=== PATIENT | female | born 1950 | race Two or more races ===

== ENCOUNTER 2023-07-16 02:30 | Inpatient (IN) | payer OTHER, MEDICARE ==
[~2023-07-16] VITALS: Ht 175.3 cm; Wt 81.6 kg
[2023-07-16 03:37] LABS: HEMATOCRIT. 34.9 % (36.0-48.0); HEMOGLOBIN. 11.8 g/dL (12.0-16.0); MEAN CORPUSCULAR HEMOGLOBIN 30.5 pg (28.0-32.0); MEAN CORPUSCULAR HGB CONC 33.8 g/dL (31.0-37.0); MEAN CORPUSCULAR VOLUME 90.4 fL (81.0-99.0); MEAN PLATELET VOLUME 7.9 fl (7.4-10.4); PLATELET 248 x1000/uL (130-400); RED BLOOD CELL COUNT 3.86 mill/uL (4.2-5.4); RED CELL DISTRIBUTION WIDTH 14.1 % (11.6-14.6); WHITE BLOOD COUNT 5.5 x1000/uL (4.5-11.0)
[2023-07-16 03:57] LABS: ALANINE AMINOTRANSFERASE < 7 IU/L (10-49); ALBUMIN 4.2 g/dL (3.2-4.8); ASPARTATE AMINOTRANSFERASE 19 IU/L (<34); BILIRUBIN TOTAL 0.3 mg/dL (0.1-1.0); CARBON DIOXIDE 29 mEq/L (21-32); CHLORIDE 104 mEq/L (98-107); CREATININE 0.9 mg/dL (0.6-1.0); GLUCOSE 99 mg/dL (70-105); POTASSIUM 3.6 mEq/L (3.5-5.1); PROTEIN TOTAL 6.9 g/dL (6.0-8.3); SODIUM 138 mEq/L (136-145); TROPONIN I HIGH SENSITIVITY 4 ng/L (3.0-34); UREA NITROGEN BLOOD 12 mg/dL (9-23)
[2023-07-16 04:25] VITALS: PULSE 64; RESP 20; O2SAT 94
[2023-07-16] MEDS: IPRATROPIUM BROMIDE (0.02%) 0.5MG/2.5ML NEB HHN STA (04:25)
[2023-07-16] MEDS: ALBUTEROL (0.083%) 2.5MG/3ML NEB HHN SCH (04:25)
[2023-07-16 04:39] LABS: INR 0.9; PARTIAL THROMBOPLASTIN TIME 29.2 sec (23.4-31.0); PROTHROMBIN TIME 10.3 sec (9.6-11.0)
[2023-07-16] MEDS: METHYLPREDNISOLONE SOD SUCC 125MG/2ML (ACT-O-VIAL) IV STA (04:47)
[2023-07-16] MEDS: CEFTRIAXONE 1GM/50ML 50 ML IV ONE (04:47)
[2023-07-16] MEDS: SODIUM CHLORIDE 0.9% 1,000 ML IV ONE (04:48)
[2023-07-16] MEDS: MAGNESIUM 2 G PREMIX 50 ML IV ONE (04:48)
[2023-07-16 05:29] LABS: DIFFERENTIAL COMMENT 1
[2023-07-16] MEDS: AZITHROMYCIN 500MG/250ML 250 ML IV ONE (05:48)
[2023-07-16 08:04] LABS: PLATELET ESTIMATE NORMAL
[2023-07-16] MEDS ORDERED: ACETAMINOPHEN 325MG TABLET PO PRN (09:15)
[2023-07-16] MEDS ORDERED: CLONIDINE 0.1MG TABLET PO PRN (09:15)
[2023-07-16] MEDS ORDERED: ONDANSETRON HCL 4MG/2ML INJ IV PRN (09:15)
[2023-07-16 09:41] LABS: CLARITY URINE CLEAR (CLEAR); COLOR URINE YELLOW (YELLOW); GLUCOSE URINE NEGATIVE (NEGATIVE); KETONES URINE NEGATIVE (NEGATIVE); LEUKOCYTE ESTERASE URINE NEGATIVE (NEGATIVE); NITRITE URINE NEGATIVE (NEGATIVE); OCCULT BLOOD URINE NEGATIVE (NEGATIVE); PROTEIN URINE NEGATIVE (NEGATIVE); SPECIFIC GRAVITY URINE 1.009 (1.005-1.030); UROBILINOGEN URINE 0.2 E.U./dL (0.2-1.0)
[2023-07-16] MEDS: GUAIFENESIN 200MG/10ML SUGAR FREE UDC PO SCH (09:58)
[2023-07-16] MEDS: ENOXAPARIN 40MG/0.4ML SYR SUBCUT SCH (10:00)
[2023-07-16 10:08] LABS: CHOLESTEROL 163 mg/dL (<200); HDL CHOLESTEROL 93 mg/dL (>65); IRON 40 ug/dL (50-170); LDL CHOLESTEROL 52 mg/dL (5-100); PHOSPHORUS 2.1 mg/dL (2.5-4.9); T4 FREE 0.99 ng/dL (0.89-1.76); THYROID STIMULATING HORMONE 0.93 uIU/mL (0.55-4.78); TOTAL IRON BINDING CAPACITY 337 ug/dl (250-425); TRIGLYCERIDE 25 mg/dL (0-150)
[2023-07-16 10:35] LABS: BASOPHILS % 1.2 % (0.0-2.0); EOSINOPHILS % 3.3 % (0.0-5.0); HEMATOCRIT. 34.4 % (36.0-48.0); HEMOGLOBIN. 11.3 g/dL (12.0-16.0); LYMPHOCYTES % 12.3 % (20.0-50.0); MEAN CORPUSCULAR HEMOGLOBIN 29.6 pg (28.0-32.0); MEAN CORPUSCULAR HGB CONC 32.8 g/dL (31.0-37.0); MEAN CORPUSCULAR VOLUME 90.5 fL (81.0-99.0); MEAN PLATELET VOLUME 8.7 fl (7.4-10.4); MONOCYTES % 1.8 % (2.0-8.0); NEUTROPHILS % 81.4 % (40.0-76.0); PLATELET 252 x1000/uL (130-400); RED CELL DISTRIBUTION WIDTH 14.5 % (11.6-14.6); WHITE BLOOD COUNT 4.9 x1000/uL (4.5-11.0)
[2023-07-16] MEDS: LOSARTAN 25 MG TABLET PO SCH (10:53)
[2023-07-16] MEDS: BUDESONIDE 0.5MG/2ML NEB HHN SCH (11:03)
[2023-07-16] MEDS: IPRATROPIUM/ALBUTEROL 0.5-3(2.5)MG/3ML NEB HHN SCH (11:05)
[2023-07-16 11:06] VITALS: PULSE 73; RESP 20; O2SAT 96
[2023-07-16] MEDS: METHYLPREDNISOLONE SOD SUCC 40MG/ML (ACT-O-VIAL) IV SCH (14:25)
[2023-07-16 15:44] VITALS: PULSE 102; RESP 18
[2023-07-16 16:00] VITALS: BP 165/93; PULSE 98; RESP 20; TEMP 97.5
[2023-07-16] MEDS: FERROUS SULFATE 325MG TABLET PO SCH (17:19)
[2023-07-16 19:23] LABS: TROPONIN I HIGH SENSITIVITY 5 ng/L (3.0-34)
[2023-07-16 19:31] LABS: *AMPHETAMINES SCREEN URINE NEGATIVE (NEGATIVE); *BARBITURATES SCREEN URINE NEGATIVE (NEGATIVE); *BENZODIAZEPINES SCREEN URINE NEGATIVE (NEGATIVE); *COCAINE SCREEN URINE NEGATIVE (NEGATIVE); CANNABINOID URINE SCREEN PRESUMPTIVE POSITIVE (NEGATIVE); ECSTASY MDMA SCREEN URINE NEGATIVE (NEGATIVE); METHADONE URINE SCREEN Neg (NEGATIVE); OPIATES URINE SCREEN NEGATIVE (NEGATIVE); PHENCYCLIDINE URINE SCREEN NEGATIVE (NEGATIVE)
[2023-07-16 20:00] VITALS: BP 147/74; PULSE 86; RESP 18; TEMP 97.7
[2023-07-16 20:40] VITALS: PULSE 77; RESP 20; O2SAT 98
[2023-07-16] MEDS: ATORVASTATIN CALCIUM 20MG TABLET PO SCH (21:38)
[2023-07-17] VITALS (11 sets, daily range): BP systolic 126–149; BP diastolic 52–70; PULSE 75–100; RESP 18–23; TEMP 97.6–97.9; O2SAT 96–98
[2023-07-17 00:19] LABS: TROPONIN I HIGH SENSITIVITY 6 ng/L (3.0-34)
[2023-07-17] MEDS: CEFTRIAXONE 1,000 MG in DEXTROSE 5% WATER 50 ML IV SCH (06:12)
[2023-07-17 06:57] LABS: BASOPHILS % 0.2 % (0.0-2.0); HEMATOCRIT. 33.5 % (36.0-48.0); HEMOGLOBIN. 11.3 g/dL (12.0-16.0); LYMPHOCYTES % 12.4 % (20.0-50.0); MEAN CORPUSCULAR HEMOGLOBIN 30.6 pg (28.0-32.0); MEAN CORPUSCULAR HGB CONC 33.9 g/dL (31.0-37.0); MEAN CORPUSCULAR VOLUME 90.3 fL (81.0-99.0); MONOCYTES % 4.5 % (2.0-8.0); NEUTROPHILS % 82.9 % (40.0-76.0); PLATELET 264 x1000/uL (130-400); RED BLOOD CELL COUNT 3.71 mill/uL (4.2-5.4); WHITE BLOOD COUNT 10.6 x1000/uL (4.5-11.0)
[2023-07-17 07:59] LABS: CALCIUM 8.9 mg/dL (8.7-10.4); CARBON DIOXIDE 25 mEq/L (21-32); CHLORIDE 103 mEq/L (98-107); CREATININE 0.8 mg/dL (0.6-1.0); GLUCOSE 122 mg/dL (70-105); PHOSPHORUS 2.5 mg/dL (2.5-4.9); POTASSIUM 3.6 mEq/L (3.5-5.1); SODIUM 133 mEq/L (136-145); UREA NITROGEN BLOOD 13 mg/dL (9-23)
[2023-07-17] MEDS: IPRATROPIUM/ALBUTEROL 0.5-3(2.5)MG/3ML NEB HHN SCH (08:10)
[2023-07-17] MEDS: AZITHROMYCIN 500 MG TABLET PO SCH (09:30)
[2023-07-17] MEDS: GUAIFENESIN/DM 600MG/30MG ER TAB 12HR PO SCH (09:31)
[2023-07-17] MEDS ORDERED: IOHEXOL-350 100 ML BOTTLE ONE (10:47)
[2023-07-17] MEDS ORDERED: FOLI-43 MT (11:27)
[2023-07-17] MEDS ORDERED: SIMV-46 MT (11:27)
[2023-07-17] MEDS ORDERED: LOSA25TA26 MT (11:27)
[2023-07-17] MEDS ORDERED: LATA2.5D14 EACHEYE (11:27)
[2023-07-17] MEDS ORDERED: DYZ MT (11:27)
[2023-07-17] MEDS: ACETAMINOPHEN 325MG TABLET PO PRN (16:34)
[2023-07-17] MEDS: CETIRIZINE 10MG TABLET PO SCH (16:34)
[2023-07-18] VITALS (9 sets, daily range): BP systolic 114–155; BP diastolic 52–78; PULSE 66–92; RESP 18–20; TEMP 97.5–98.2; O2SAT 99
[2023-07-18] MEDS: CEFTRIAXONE 1GM/50ML 50 ML IV SCH (05:30)
[2023-07-18 07:24] LABS: BASOPHILS % 0.2 % (0.0-2.0); HEMATOCRIT. 32.9 % (36.0-48.0); LYMPHOCYTES % 13.1 % (20.0-50.0); MEAN CORPUSCULAR HGB CONC 33.3 g/dL (31.0-37.0); MEAN PLATELET VOLUME 8.3 fl (7.4-10.4); MONOCYTES % 4.5 % (2.0-8.0); NEUTROPHILS % 82.2 % (40.0-76.0); PLATELET 280 x1000/uL (130-400); RED BLOOD CELL COUNT 3.66 mill/uL (4.2-5.4); RED CELL DISTRIBUTION WIDTH 14.5 % (11.6-14.6); WHITE BLOOD COUNT 12.3 x1000/uL (4.5-11.0)
[2023-07-18 07:50] LABS: CALCIUM 8.6 mg/dL (8.7-10.4); CARBON DIOXIDE 27 mEq/L (21-32); CHLORIDE 104 mEq/L (98-107); CREATININE 0.7 mg/dL (0.6-1.0); GLUCOSE 104 mg/dL (70-105); PHOSPHORUS 3.2 mg/dL (2.5-4.9); SODIUM 136 mEq/L (136-145); UREA NITROGEN BLOOD 12 mg/dL (9-23)
[2023-07-18] MEDS: MONTELUKAST SODIUM 10MG TABLET PO SCH (17:12)
[2023-07-19] VITALS (10 sets, daily range): BP systolic 135–151; BP diastolic 61–77; PULSE 71–88; RESP 17–18; TEMP 96.8–97.8; O2SAT 96–99
[2023-07-19] MEDS: IPRATROPIUM/ALBUTEROL 0.5-3(2.5)MG/3ML NEB HHN PRN (04:34)
[2023-07-19 11:42] LABS: BASOPHILS % 0.5 % (0.0-2.0); HEMATOCRIT. 35.4 % (36.0-48.0); HEMOGLOBIN. 11.6 g/dL (12.0-16.0); LYMPHOCYTES % 12.1 % (20.0-50.0); MEAN CORPUSCULAR HEMOGLOBIN 29.6 pg (28.0-32.0); MEAN CORPUSCULAR HGB CONC 32.6 g/dL (31.0-37.0); MEAN CORPUSCULAR VOLUME 90.6 fL (81.0-99.0); MEAN PLATELET VOLUME 8.5 fl (7.4-10.4); MONOCYTES % 2.8 % (2.0-8.0); NEUTROPHILS % 84.6 % (40.0-76.0); PLATELET 260 x1000/uL (130-400); RED BLOOD CELL COUNT 3.91 mill/uL (4.2-5.4); RED CELL DISTRIBUTION WIDTH 14.5 % (11.6-14.6); WHITE BLOOD COUNT 11.1 x1000/uL (4.5-11.0)
[2023-07-19] MEDS ORDERED: GUAI-741 PO (12:09)
[2023-07-19] MEDS ORDERED: MOME13HF11 INH (12:09)
[2023-07-19] MEDS ORDERED: ALBU18HF2 IH (12:09)
[2023-07-19] MEDS ORDERED: MONT-46 PO (12:09)
[2023-07-19] MEDS ORDERED: FERR-63 PO (12:09)
[2023-07-19] MEDS ORDERED: PRED5TAB48 MT (12:09)
[2023-07-19] MEDS ORDERED: CETI10TA6 PO (12:09)
[2023-07-19 12:41] LABS: ALANINE AMINOTRANSFERASE < 7 IU/L (10-49); ALBUMIN 4.1 g/dL (3.2-4.8); ASPARTATE AMINOTRANSFERASE 15 IU/L (<34); BILIRUBIN TOTAL 0.3 mg/dL (0.1-1.0); CALCIUM 8.7 mg/dL (8.7-10.4); CARBON DIOXIDE 24 mEq/L (21-32); CHLORIDE 102 mEq/L (98-107); CREATININE 0.8 mg/dL (0.6-1.0); GLUCOSE 155 mg/dL (70-105); POTASSIUM 3.9 mEq/L (3.5-5.1); PROTEIN TOTAL 7.2 g/dL (6.0-8.3); SODIUM 135 mEq/L (136-145); UREA NITROGEN BLOOD 15 mg/dL (9-23)
[2023-07-19] MEDS ORDERED: METHYLPREDNISOLONE SOD SUCC 40MG/ML (ACT-O-VIAL) IV SCH (21:00)
== END 2023-07-19 16:10 | disposition home or self-care (01) | DRG 203 ==
LOC: ER 03:22 → 5WST 04:47 → 7WST 14:48
PROVIDERS: ADMIT Internal Medicine; ATTEND Internal Medicine
DX: J45.901 Unspecified asthma with (acute) exacerbation (principal); D50.9 Iron deficiency anemia, unspecified; I10 Essential (primary) hypertension; D72.10 Eosinophilia, unspecified; Z20.822 Contact with and (suspected) exposure to COVID-19; E78.5 Hyperlipidemia, unspecified; H40.9 Unspecified glaucoma; J06.9 Acute upper respiratory infection, unspecified; K44.9 Diaphragmatic hernia without obstruction or gangrene; Z79.51 Long term (current) use of inhaled steroids; Z79.899 Other long term (current) drug therapy; Z91.199 Patient's noncompliance with other medical treatment and regimen due to unspecified reason
CPT/HCPCS: 36415; 71045; 71275; 80048; 80053; 80061; 80305; 81003; 82728; 83036; 83540; 83550; 83605; 83735; 83880; 84100; 84145; 84439; 84443; 84484; 85025; 85379; 87420; 87426; 87804; 93005; 93970; 94640; 94644; 99291; J0456; J0696; J1650; J2920; J2930; J3475; J7030; J7060; J7626; Q9967